=== PATIENT | female | born 1970 | race Caucasian/White ===

== ENCOUNTER 2024-06-18 16:00 | Outpatient (CLI) | payer OTHER ==
[2024-06-18 17:16] LABS: BILIRUBIN,URINE NEGATIVE (NEGATIVE); BLOOD, URINE 1+ (NEGATIVE); CLARITY/URINE CLEAR (CLEAR); COLOR,URINE YELLOW (YELLOW); GLUCOSE,URINE NEGATIVE (NEGATIVE); KETONES,URINE NEGATIVE (NEGATIVE); LEUKOCYTE ESTERASE ,URINE NEGATIVE (NEGATIVE); NITRITE, URINE NEGATIVE (NEGATIVE); PROTEIN URINE NEGATIVE (NEGATIVE); UROBILINOGEN,URINE 0.2 (0.2-1.0)
[2024-06-18 17:20] LABS: BASOPHILS # (AUTO) 0.1 K/uL (0.0-0.2); BASOPHILS % (AUTO) 1.5 % (0.0-2.0); EOSINOPHILS # (AUTO) 0.1 K/uL (0.0-0.4); EOSINOPHILS % (AUTO) 3.3 % (0.0-4.0); HEMATOCRIT 34.4 % (36-48); HEMOGLOBIN 11.7 g/dL (12.0-16.0); LYMPHOCYTES # (AUTO) 1.7 K/uL (1.0-5.5); LYMPHOCYTES % (AUTO) 38.8 % (20.5-51.5); MEAN CORPUSCULAR HEMOGLOBIN 31 pg (27-31); MEAN CORPUSCULAR HGB CONC 34 % (32-36); MEAN CORPUSCULAR VOLUME 91 fL (79.0-98.0); MONOCYTES # (AUTO) 0.4 K/uL (0.0-1.0); MONOCYTES % (AUTO) 8.2 % (1.7-9.3); NEUTROPHILS # (AUTO) 2.1 K/uL (1.8-7.7); NEUTROPHILS % (AUTO) 48.2 % (40.0-70.0); PLATELET COUNT (AUTO) 256 K/uL (130-430); RED BLOOD CELL COUNT(AUTO) 3.79 MIL/uL (4.2-6.2); RED CELL DISTRIBUTION WIDTH 13.5 % (9.0-15.0); WHITE BLOOD COUNT (AUTO) 4.4 K/uL (4.8-10.8)
[2024-06-18 17:43] LABS: BACTERIA,URINE None Seen /HPF (None Seen)
[2024-06-18 18:01] LABS: ERYTHROCYTE SEDIMENTATION RATE 20 MM/HR (0-20)
[2024-06-18 18:05] LABS: ALANINE AMINOTRANSFERASE 16 U/L (12-78); ALBUMIN 3.6 g/dL (3.4-4.8); ANION GAP 4 (5-15); ASPARTATE AMINOTRANSFERASE 34 U/L (10-37); CALCIUM 8.7 mg/dL (8.4-11.0); CARBON DIOXIDE 35 mmol/L (23-29); CHLORIDE 106 mmol/L (98-107); CREATINE KINASE, TOTAL 47 U/L (26-192); CREATININE 0.87 mg/dL (0.55-1.30); GFR AFRICAN AMERICAN 87 mL/min (>90); GLUCOSE 89 mg/dL (74-106); POTASSIUM 4.5 mmol/L (3.5-5.1); SODIUM SERUM 145 mmol/L (136-145); TOTAL BILIRUBIN 0.2 mg/dL (0.0-1.0); TOTAL PROTEIN, SERUM 7.3 g/dL (6.4-8.3); UREA NITROGEN, BLOOD 9 mg/dL (8-21)
[2024-06-18 18:09] LABS: GFR NON AFRICAN-AMERICAN 72 mL/min (>90)
[2024-06-20 09:07] LABS: HEPATITIS A AB, IgM Negative (Negative); HEPATITIS B CORE AB, IgM Negative (Negative); HEPATITIS B SURFACE AG Negative (Negative); HEPATITIS C VIRUS AB Non Reactive (Non Reactive)
[2024-06-20 11:07] LABS: COMPLEMENT C3, SERUM 109 mg/dL (82-167); COMPLEMENT C4, SERUM 15 mg/dL (12-38)
[2024-06-20 12:07] LABS: ANTI NUCLEAR AB WITH REFLEX Positive (Negative)
[2024-06-21 08:07] LABS: RA LATEX TURBID 141.6 IU/mL (<14.0)
[2024-06-21 11:07] LABS: VIT D,1, 25-DIHYDROXY 48.5 pg/mL (24.8-81.5)
[2024-06-22 13:06] LABS: PTT-LA 37.9 sec (0.0-43.5); dRVVT 42.7 sec (0.0-47.0)
== END 2024-06-18 20:19 | disposition home or self-care (01) ==
LOC: SLB 16:00
PROVIDERS: ATTEND Internal Medicine
DX: M45.9 Ankylosing spondylitis of unspecified sites in spine (principal); M06.09 Rheumatoid arthritis without rheumatoid factor, multiple sites; B19.9 Unspecified viral hepatitis without hepatic coma
CPT/HCPCS: 36415; 80053; 80074; 81000; 81001; 81015; 82306; 82550; 85025; 85613; 85651; 85670; 85705; 85732; 86038; 86140; 86146; 86147; 86160; 86431